=== PATIENT | female | born 1995 | race Caucasian/White ===

== ENCOUNTER 2018-08-03 14:14 | Outpatient (REF) | payer BC, SELFPAY ==
--- NOTE | 2018-08-03 13:00 | PAPFT_PTH ---
PATIENT: EDILBERTO TREVINO LOC: [facility] U#:[id number] AGE/SX: 22/F ROOM: RE08/03/[address]: JAELYN Valenzuela : 1995 BED: DIS: 08/03/2018 SPEC #: [id number] RECD: 08/03/18 17:16 STATUS: MARITZA REQ #: [id number] GURVINDER: 08/03/18 13:[address]: Jazlyn Huang DEPT: [facility] Cytology RECD BY: Onelia Moreland ENTERED: 08/03/18 17:16 SP TYPE: PAPFT OTHR DR: Blaire Hawk Tissues: 1 - CX/ENDOCX FOR PAP SMEARS Procedures: PAP THIN PREP/[facility] Screening Comments: [id number]
[2018-08-06 15:17] LABS: Chlamydia Result Negative; GC Result Negative; Specimen Description CERVIX
== END 2018-08-03 14:34 ==
LOC: LBN 14:14
PROVIDERS: PCP Nurse Practitioner Family; Visit Provider Nurse Practitioner Family
DX: Z11.3 Encounter for screening for infections with a predominantly sexual mode of transmission (principal); Z12.4 Encounter for screening for malignant neoplasm of cervix
CPT/HCPCS: 87491; 87591; 88142

== ENCOUNTER 2019-09-06 11:17 | Outpatient (REF) | payer BC, SELFPAY ==
--- NOTE | 2019-09-06 09:10 | PAPFT_PTH ---
PATIENT: EDILBERTO TREVINO LOC: [facility] U#:[id number] AGE/SX: 23/F ROOM: RE09/06/[address]: JAELYN Valenzuela : 1995 BED: DIS: 09/06/2019 SPEC #: [id number] RECD: 09/06/19 12:16 STATUS: MARITZA REQ #: [id number] GURVINDER: 09/06/19 09:[address]: Jazlyn Huang DEPT: [facility] Cytology RECD BY: Onelia Moreland ENTERED: 09/06/19 12:16 SP TYPE: PAPFT OTHR DR: Blaire Hawk Tissues: 1 - CX/ENDOCX FOR PAP SMEARS Procedures: PAP THIN PREP/[facility] Screening HPV DNA PROBE Comments: [id number]
== END 2019-09-06 11:37 ==
LOC: LBN 11:17
PROVIDERS: PCP Nurse Practitioner Family; Visit Provider Nurse Practitioner Family
DX: Z12.4 Encounter for screening for malignant neoplasm of cervix (principal); R87.610 Atypical squamous cells of undetermined significance on cytologic smear of cervix (ASC-US)
CPT/HCPCS: 88142; 87624